=== PATIENT | female | born 1945 | race Caucasian/White ===

== ENCOUNTER 2019-05-21 16:13 | Inpatient (IN) | payer MEDICARE ==
--- NOTE | 2019-05-21 16:28 | ED ---
Abdominal Pain/Female - HPI Summary HPI Summary: This pt is a 74 y/o female presenting to [facility] via EMS from [facility] c/ o intermittent abd pain since yesterday. EMS reports pt presented to [facility] with LUQ abd pain. Her pain is aggravated with movement and alleviated with rest. Pt has vomited twice today. Her last bowel movement was yesterday. Pt had blood work and an abdominal/pelvis CT while at [facility] and found to have a large 8.1 x 5.5 cm fluid collection involving the pelvis. Patient received 15 mg Toradol, 1L fluids and antibiotics [employer]. Pt currently reports 4/10 abd pain. Denies fever, diarrhea, SOB, chest pain. PMHx: HTN, UTI, gastroenteritis, hypokalemia, hx of abscess in abdomen, C. diff but not active diarrhea. Pt denies tobacco use. NKDA. - History of Current Complaint Stated Complaint: ABD ABCESS PER EMS Time Seen by Provider: 05/21/19 16:16 Hx Obtained From: Patient Onset/Duration: Lasting Days - 1, Still Present Timing: Days - 1 Severity Currently: Moderate Pain Intensity: 4 Pain Scale Used: 0-10 Numeric Location: Discrete At: LUQ Radiates: No Aggravating Factor(s): Nothing Alleviating Factor(s): Nothing Associated Signs and Symptoms: Positive: Vomiting. Negative: Fever, Chest Pain , Diarrhea, Other: - NEGATIVE: SOB Allergies/Adverse Reactions: Allergies Allergy/AdvReac Type Severity Reaction Status Date / Time No Known Allergies Allergy Verified 05/21/19 16:21 Home Medications: Home Medications Donepezil TAB* [Aricept 5 MG TAB*] 5 mg PO BEDTIME 05/21/19 [History Confirmed 05/21/19] Fenofibrate [Tricor 160 MG] 160 mg PO DAILY WITH MEAL 05/21/19 [History Confirmed 05/21/19] Metoprolol Succinate XL TAB* [Toprol XL TAB*] 25 mg PO BID 05/21/19 [History Confirmed 05/21/19] Montelukast Sodium TAB* [Singulair TAB*] 10 mg PO DAILY 05/21/19 [History Confirmed 05/21/19] Spironolactone TAB* [Aldactone TAB*] 25 mg PO DAILY 05/21/19 [History Confirmed 05/21/19] PMH/Surg Hx/FS Hx/Imm Hx Cardiovascular History: Reports: Hx Hypertension GI History: Reports: Other GI Disorders - Gastroenteritis History: Reports: Other Problems/Disorders - UTI Infectious Disease History: No Infectious Disease History: Denies: Traveled Outside the [place] in Last 30 Days - Family History Known Family History: Positive: Non-Contributory - Social History Alcohol Use: Rare Substance Use Type: Reports: None Smoking Status (MU): Never Smoked Tobacco Review of Systems Negative: Fever Negative: Chest Pain Negative: Shortness Of Breath Positive: Abdominal Pain, Vomiting. Negative: Diarrhea All Other Systems Reviewed And Are Negative: Yes Physical Exam - Summary Physical Exam Summary: VITAL SIGNS: Reviewed. GENERAL: Patient is a well-developed and nourished female who is lying comfortable in the stretcher. Patient is not in any acute respiratory distress. HEAD AND FACE: No signs of trauma. No ecchymosis, hematomas or skull depressions. No sinus tenderness. EYES: PERRLA, EOMI x 2, No injected conjunctiva, no nystagmus. EARS: Hearing grossly intact. Ear canals and tympanic membranes are within normal limits. MOUTH: Oropharynx within normal limits. NECK: Supple, trachea is midline, no adenopathy, no JVD, no carotid bruit, no c- spine tenderness, neck with full ROM. CHEST: Symmetric, no tenderness at palpation. LUNGS: Clear to auscultation bilaterally. No wheezing or crackles. CVS: Regular rate and rhythm, S1 and S2 present, no murmurs or gallops appreciated. ABDOMEN: Soft, tenderness around the periumbilical area. No signs of distention. No rebound, no guarding, and no masses palpated. Bowel sounds are normal. EXTREMITIES: FROM in all major joints, no edema, no cyanosis or clubbing. NEURO: Alert and oriented x 3. No acute neurological deficits. Speech is normal and follows commands. SKIN: Dry and warm. Triage Information Reviewed: Yes Vital Signs On Initial Exam: Initial Vitals Temp Pulse Resp BP Pulse Ox 97.9 F 77 16 139/72 100 05/21/19 16:18 05/21/19 16:18 05/21/19 16:18 05/21/19 16:18 05/21/19 16:18 Vital Signs Reviewed: Yes Procedures - Sedation Patient Received Moderate/Deep Sedation with Procedure: No Diagnostics - Vital Signs Vital Signs Temp Pulse Resp BP Pulse Ox 05/21/19 16:18 97.9 F 77 16 139/72 100 - Laboratory Result Diagrams: 05/21/19 17:54 05/21/19 17:54 Lab Statement: Any lab studies that have been ordered have been reviewed, and results considered in the medical decision making process. - CT Abdomen/pelvis CT (from [place]) CT Interpretation Completed By: Radiologist Summary of CT Findings: IMPRESSION: Diffuse inflammatory changes in the lower abdomen and pelvis with aassociated multiple air-fluid levels. Findings may be on the basis of a late appendicitis, or perforated diverticulitis. There is a coarse calcification measuring approximately 1 cm involving the pelvis which may represent date displaced appendicolith or small degnerating uterine leiomyoma. Dr. Soto has reviewed this report. Re-Evaluation - Re-Evaluation First Eval Re-Evaluation Time: 18:28 Comment: Balwinder Long, surgical PA, reports patient will be admitted under Dr. Kebede' services. Abdominal Pain Fem Course/Dx - Course Course Of Treatment: This pt is a 74 y/o female presenting to [facility] via EMS from [facility] c/o intermittent abd pain since yesterday. EMS reports pt presented to [facility] with LUQ abd pain. Her pain is aggravated with movement and alleviated with rest. Pt has vomited twice today. Her last bowel movement was yesterday. Pt had blood work and an abdominal/pelvis CT while at [facility] and found to have a large 8.1 x 5.5 cm fluid collection involving the pelvis. Patient received 15 mg Toradol, 1L fluids and antibiotics [employer]. Pt currently reports 4/10 abd pain. Denies fever, diarrhea, SOB, chest pain. PMHx: HTN, UTI, gastroenteritis, hypokalemia, hx of abscess in abdomen, C. diff but not active diarrhea. Pt denies tobacco use. NKDA. Blood work shows white blood cell count of 13.4, platelets of 501, potassium 2.9 , anion gap is 13, CRP is 49.6. Abdominopelvic CT done in [facility] was reviewed by Dr. Kebede. Obed Long Physician Roof Bolting Coal Miner from Dr. Kebede is at bedside and he recommends for the patient to be admitted under Dr. Kebede services. Patient is hemodynamically stable. - Diagnoses Differential Diagnosis: Positive: Appendicitis, Constipation, Diverticulitis, Urinary Tract Infection Provider Diagnoses: Abdominal pain - Provider Notifications Discussed Care Of Patient With: Nirmal Kebede Time Discussed With Above Provider: 17:04 Instructed by Provider To: Other - Discussed with Dr. Kebede, surgeon, who will look at the CT. [1732] Dr. Kebede recommends repeat blood work and patient will be seen by surgery. Discharge ED - Sign-Out/Discharge Documenting (check all that apply): Patient Departure - Admit to [facility] - Discharge Plan Condition: Stable Disposition: ADMITTED TO [facility] Referrals: No Primary Care Phys,NOPCP [Medical Doctor] - - Billing Disposition and Condition Condition: STABLE Disposition: Admitted to [facility] - Attestation Statements Document Initiated by Edita: Yes Documenting Scribe: Shannon Boo Provider For Whom Edita is Documenting (Include Credential): Jared Soto MD Scribe Attestation: Shannon Sams, scribed for Jared Soto MD on 05/21/19 at 1841. Scribe Documentation Reviewed: Yes Provider Attestation: The documentation as recorded by the Shannon ayon accurately reflects the service I personally performed and the decisions made by me, Jared Soto MD Status of Scribe Document: Viewed
[2019-05-21 18:08] LABS: Hematocrit 38 % (35-47); Hemoglobin 12.5 g/dL (12.0-16.0); Mean Corpuscular HGB Conc 33 g/dL (31-36); Mean Corpuscular Hemoglobin 29 pg (27-31); Mean Corpuscular Volume 86 fL (80-97); Platelet Count 501 10^3/uL (150-450); Red Blood Count 4.38 10^6 /uL (3.70-4.87); Red Cell Distribution Width 15 % (10-15); White Blood Count 13.4 10^3/uL (3.5-10.8)
[2019-05-21] MEDS ORDERED: Ondansetron INJ* 2 MG/ML VIAL IV PRN (18:13)
[2019-05-21] MEDS ORDERED: HYDROmorphone INJ* 0.5 MG/0.5 ML SYRINGE IV SLOW PU PRN (18:13)
[2019-05-21] MEDS ORDERED: NS 0.9% 1000 ML** 1,000 ML IV SCH (18:15)
[2019-05-21 18:17] LABS: Activated Partial Thrombo Time 37.2 seconds (26.0-38.0); INR 1.86 (0.82-1.09)
[2019-05-21 18:26] LABS: Albumin 3.6 g/dL (3.2-5.2); Albumin/Globulin Ratio 1.1 (1-3); BUN/Creatinine Ratio 32.4 (8-20); C Reactive Protein 49.62 mg/L (<8.01); Calcium 8.9 mg/dL (8.6-10.3); EGFR African American 102.9 (>60); EGFR Non-African American 85.1 (>60); Globulin 3.3 g/dL (2-4); Potassium 2.9 mmol/L (3.5-5.0); Total Bilirubin 0.5 mg/dL (0.2-1.0); Total Protein 6.9 g/dL (6.4-8.9)
--- NOTE | 2019-05-21 19:02 | HP ---
H&P (Free Text) History and Physical: Subjective: CC: ABD pain x 1 week HPI: 74 yo F presents to ed with ABD pain that started 1 week ago, but increased in intensity this morning. She was treated for a possible urinary tract infection 1 week ago with cipro and recently finished that course. Increased pain today localized to umbilical/suprabubic area. She had some nausea and vomiting this morning. Denies diarrhea, constipation, blood in stool. Last BM yesterday. Has had some anorexia for 1 week. Transferred from [facility] ED, who gave ertapenem, did CT, and lab work. Has a history of C. Diff infection 1 year ago. PMH: HTN, HLD, dementia Family history: Negative for clotting or bleeding disorders Social hx: Lives with family, normally ambulates on own. Denies smoking, alcohol , and drug use or history. Surgical history: Tooth extractions, no complications Allergies: NKDA Current Medications Acetaminophen (Tylenol Tab*) 650 mg PO Q4H PRN PRN Reason: Moderate pain Hydromorphone HCl (Dilaudid Inj1s*) 0.5 mg IV SLOW PU Q1H PRN PRN Reason: PAIN - SEVERE Potassium Chloride (Potassium Chloride 10 Meq/50 Ml Ivpremix*) 10 meq in 50 mls @ 50 mls/hr IV Q2H JEVON Stop: 05/21/19 21:59 Sodium Chloride (Ns 0.9% 1000 Ml) 1,000 mls @ 125 mls/hr IV PER RATE [facility] Piperacillin Sod/Tazobactam (Sod 3.375 gm/ Sodium Chloride) 100 mls @ 25 mls/ hr IVPB Q8H [facility] Ondansetron HCl (Zofran Inj*) 4 mg IV Q4H PRN PRN Reason: NAUSEA/VOMITING Vital Signs - 8 hr 05/21/19 05/21/19 05/21/19 16:18 16:23 16:49 Temperature 97.9 F Pulse Rate 83 85 79 Respiratory 16 Rate Blood Pressure 139/72 78/59 (mmHg) O2 Sat by Pulse 100 100 100 Oximetry 05/21/19 05/21/19 05/21/19 17:00 17:18 18:07 Temperature Pulse Rate 85 84 Respiratory Rate Blood Pressure 138/73 136/71 (mmHg) O2 Sat by Pulse 99 100 Oximetry 05/21/19 18:08 Temperature Pulse Rate 84 Respiratory Rate Blood Pressure (mmHg) O2 Sat by Pulse [address] ABD Pelvis: intra abdominal abscess PEX: General: Alert and in no acute distress or discomfort Integumentary: No rashes, lesions, or jaundice Heart: RRR, no MRG Lungs: CTA, no WRR ABD: Bowel sounds present. Soft, nondistended. Tender in suprapubic/umbilical region. Negative fluid shift or copeland's sign. Extremities: No edema, pulses intact bilaterally. Assessment and plan: 74 yo woman with abdominal pain and CT scan showing intra abdominal abscess. Will admit to surgical and follow. Order for IR drainage tomorrow, NPO starting midnight, clear liquids for now, IV zosyn. KCl has been started to correct hypokalemia. Repeat labs ordered.
[2019-05-21] MEDS: KCL 10 MEQ/50 ML IVPREMIX* 10 MEQ/50 ML BAG IV SCH ×2 (19:19→21:52)
[2019-05-21 19:49] LABS: ABS Basophils 0.1 10^3/ul (0-0.2); ABS Eosinophils 0.2 10^3/ul (0-0.6); ABS Lymphocytes 2.2 10^3/ul (1.0-4.8); ABS Monocytes 0.8 10^3/ul (0-0.8); ABS Neutrophils 10.2 10^3/ul (1.5-7.7); Eosinophil % 1.2 %; Lymphocyte % 16.6 %
[2019-05-21] MEDS ORDERED: Phytonadione Oral Solution* 5 MG/25 ML UDC PO ONE (20:01)
[2019-05-21] MEDS ORDERED: Zosyn 3.375 gm X 1 dose, then dose per Pharmacy IVPB ONE ×2 (21:00)
[2019-05-22] MEDS: Piperacillin/Tazobactam VIAL*) 3.375 GM in NS 0.9% 100 ML* 100 ML IVPB SCH ×3 (01:08→16:46)
[2019-05-22 05:24] LABS: Hematocrit 32 % (35-47); Hemoglobin 10.5 g/dL (12.0-16.0); Mean Corpuscular HGB Conc 33 g/dL (31-36); Mean Corpuscular Hemoglobin 28 pg (27-31); Mean Corpuscular Volume 86 fL (80-97); Mean Platelet Volume 6.7 fL (7.4-10.4); Platelet Count 450 10^3/uL (150-450); Red Blood Count 3.69 10^6 /uL (3.70-4.87); Red Cell Distribution Width 15 % (10-15); White Blood Count 11.3 10^3/uL (3.5-10.8)
[2019-05-22 05:42] LABS: BUN/Creatinine Ratio 31.7 (8-20); Calcium 7.9 mg/dL (8.6-10.3); EGFR African American 112.4 (>60); EGFR Non-African American 92.9 (>60); Potassium 3.2 mmol/L (3.5-5.0)
[2019-05-22 05:57] LABS: ABS Basophils 0.1 10^3/ul (0-0.2); ABS Eosinophils 0.2 10^3/ul (0-0.6); ABS Lymphocytes 1.8 10^3/ul (1.0-4.8); ABS Monocytes 0.7 10^3/ul (0-0.8); ABS Neutrophils 8.5 10^3/ul (1.5-7.7); Eosinophil % 2.1 %; Lymphocyte % 15.7 %
[2019-05-22] MEDS: Acetaminophen TAB* 325 MG PO PRN (08:10)
[2019-05-22 09:01] LABS: INR 1.61 (0.82-1.09)
[2019-05-22] MEDS: KCL 10 MEQ/50 ML IVPREMIX* 10 MEQ/50 ML BAG IV SCH ×2 (10:37→12:43)
--- NOTE | 2019-05-22 10:52 | PN ---
Progress Note - Progress Note Date of Service: 05/22/19 Note: Subjective: Reporting moderate abdominal pain, similar to yesterday. No nausea/vomiting, fever, chills. Objective: Vital Signs - 8 hr 05/22/19 05/22/19 05/22/19 03:43 07:58 08:00 Temperature 99.1 F 98.1 F Pulse Rate 76 72 Respiratory 17 16 18 Rate Blood Pressure 108/47 101/54 (mmHg) O2 Sat by Pulse 97 100 Oximetry Intake and Output Last 24 Hours 05/20/19 05/21/19 05/22/19 05/23/19 06:59 06:59 06:59 06:59 Intake Total 1443 Output Total 150 100 Balance 1293 -100 Weight 168 lb 9.6 oz Intake: IV Fluids 1153 ABX - PIPERACILLIN 105 NS (0.9%) 990 potassium 58 Oral 290 Output: Urine 150 100 Other: Estimated Void Medium # Bowel Movements 0 1 Estimated Stool Amount Small # Voids 1 Laboratory Results - last 24 hr 05/21/19 05/21/19 05/21/19 17:54 17:54 17:54 WBC 13.4 H RBC 4.38 Hgb 12.5 Hct 38 MCV 86 MCH 29 MCHC 33 RDW 15 Plt Count 501 H MPV 7.0 L Neut % (Auto) 75.7 Lymph % (Auto) 16.6 Walsh % (Auto) 5.9 Eos % (Auto) 1.2 Baso % (Auto) 0.6 Absolute Neuts (auto) 10.2 H Absolute Lymphs (auto) 2.2 Absolute Monos (auto) 0.8 Absolute Eos (auto) 0.2 Absolute Basos (auto) 0.1 Absolute Nucleated RBC 0.0 Immature Gran % 3.0 Neutrophils % 65.0 Band Neutrophils % 1.0 Lymphocytes % 23.0 Monocytes % 4.0 Eosinophils % 4.0 Basophils % 1.0 Metamyelocytes % 2.0 Myelocytes % Nucleated RBC % 0.0 Normal RBC Morphology Normal INR (Anticoag Therapy) 1.86 H APTT 37.2 Sodium 141 Potassium 2.9 L Chloride 104 Carbon Dioxide 24 Anion Gap 13 H BUN 22 Creatinine 0.68 Est GFR ( Amer) 102.9 Est GFR (Non-Af Amer) 85.1 BUN/Creatinine Ratio 32.4 H Glucose 84 Calcium 8.9 Total Bilirubin 0.50 AST 14 ALT 10 Alkaline Phosphatase 53 C-Reactive Protein 49.62 H Total Protein 6.9 Albumin 3.6 Globulin 3.3 Albumin/Globulin Ratio 1.1 05/22/19 05/22/19 05/22/19 05:02 05:02 08:45 WBC 11.3 H RBC 3.69 L Hgb 10.5 L Hct 32 L MCV 86 MCH 28 MCHC 33 RDW 15 Plt Count 450 MPV 6.7 L Neut % (Auto) 75.4 Lymph % (Auto) 15.7 Walsh % (Auto) 6.4 Eos % (Auto) 2.1 Baso % (Auto) 0.4 Absolute Neuts (auto) 8.5 H Absolute Lymphs (auto) 1.8 Absolute Monos (auto) 0.7 Absolute Eos (auto) 0.2 Absolute Basos (auto) 0.1 Absolute Nucleated RBC 0.0 Immature Gran % 6.0 Neutrophils % 78.0 Band Neutrophils % 2.0 Lymphocytes % 9.0 Monocytes % 4.0 Eosinophils % 2.0 Basophils % 1.0 Metamyelocytes % 1.0 Myelocytes % 3.0 H Nucleated RBC % 0.0 Normal RBC Morphology Normal INR (Anticoag Therapy) 1.61 H APTT Sodium 143 Potassium 3.2 L Chloride 110 Carbon Dioxide 23 Anion Gap 10 BUN 20 Creatinine 0.63 Est GFR ( Amer) 112.4 Est GFR (Non-Af Amer) 92.9 BUN/Creatinine Ratio 31.7 H Glucose 94 Calcium 7.9 L Total Bilirubin AST ALT Alkaline Phosphatase C-Reactive Protein Total Protein Albumin Globulin Albumin/Globulin Ratio PEX: General: Alert and in no acute distress or discomfort Integumentary: No rashes, lesions, or jaundice Heart: RRR, no MRG Lungs: CTA, no WRR ABD: Soft, nondistended. Bowel sounds present. Tender in hypogastrium and umbilical region. Extremities: Distal pulses intact bilaterally. Calves nontender. Assessment/plan: 74 year old with ABD pain and intra abdominal abscess. Plan is IR drainage scheduled for today. I signed consent, as no family members were able to be reached. Later on, her son did sign consent after I informed him of the indications, risks, benefits, and alternatives of the procedure, as well as answered any questions. Ordered 2 runs of KCl for hypokalemia. Continue zosyn.
[2019-05-22] MEDS: D5W NS 0.9% 20Meq KCL 1000 ML* 1,000 ML IV SCH ×2 (12:10→22:19)
[2019-05-22] MEDS ORDERED: Iohexol 300* (CONTRAST) 10 ML SDV IV SCH (12:38)
[2019-05-22] MEDS ORDERED: fentaNYL* 50 MCG/ML 2 ML VIAL (100 MCG VIAL) ONE ×2 (17:23→18:30)
[2019-05-22] MEDS ORDERED: Naloxone* 0.4 MG/ML 1 ML VIAL ONE (17:23)
--- NOTE | 2019-05-22 19:25 | BRIEFOPN ---
Brief Operative/Procedure Note - Operation Details Pre-Op Diagnosis: Pelvic Abscess Post-Op Diagnosis: Pelvic Abscess / Phlegmon Procedures: CT guided right transgluteal pelvic abscess drain. Surgeon(s)/Proceduralists: Farzad Flores MD Anesthesia: IV Fentanyl and local 1% lidocaine Estimated Blood Loss: Minimal Findings: Abscess with more solid component mixed with fluid Specimen(s)/Culture(s) Description: 10 mL of purulent drainage sent to laboratory Complications: None
[2019-05-23] MEDS: Piperacillin/Tazobactam VIAL*) 3.375 GM in NS 0.9% 100 ML* 100 ML IVPB SCH ×3 (01:15→17:20)
[2019-05-23 06:41] LABS: Hematocrit 30 % (35-47); Hemoglobin 10.6 g/dL (12.0-16.0); Mean Corpuscular HGB Conc 35 g/dL (31-36); Mean Corpuscular Hemoglobin 30 pg (27-31); Mean Corpuscular Volume 85 fL (80-97); Mean Platelet Volume 6.7 fL (7.4-10.4); Platelet Count 453 10^3/uL (150-450); Red Blood Count 3.56 10^6 /uL (3.70-4.87); Red Cell Distribution Width 15 % (10-15); White Blood Count 10.8 10^3/uL (3.5-10.8)
[2019-05-23 07:01] LABS: BUN/Creatinine Ratio 18.9 (8-20); EGFR African American 137.2 (>60); EGFR Non-African American 113.4 (>60); Potassium 3.3 mmol/L (3.5-5.0)
[2019-05-23 07:48] LABS: ABS Eosinophils 0.1 10^3/ul (0-0.6); ABS Lymphocytes 1.2 10^3/ul (1.0-4.8); ABS Monocytes 0.5 10^3/ul (0-0.8); Eosinophil % 1.2 %; Lymphocyte % 10.6 %
[2019-05-23] MEDS: Acetaminophen TAB* 325 MG PO PRN ×2 (08:06→19:18)
[2019-05-23] MEDS: D5W NS 0.9% 20Meq KCL 1000 ML* 1,000 ML IV SCH ×2 (08:52→17:19)
--- NOTE | 2019-05-23 13:26 | PN ---
Progress Note - Progress Note Date of Service: 05/23/19 SOAP: Subjective: NAD, Comfortable in chair. reports + BM this AM [] Objective: Vital Signs Temp 98.2 F 05/23/19 11:34 Pulse 79 05/23/19 11:34 Resp 16 05/23/19 11:34 BP 123/54 05/23/19 11:34 Pulse Ox 99 05/23/19 11:34 Intake & Output 05/22/19 05/23/19 05/23/19 18:59 06:59 18:59 Intake Total 6281 562 7005 Output Total 400 695 400 Balance 868 467 1566 Weight 169 lb 11.2 oz Intake: IV Fluids 0556 340 0378 ABX - PIPERACILLIN 174 105 D5W 20 meq KCL 987 970 NS (0.9%) 906 potassium 100 Oral 0 0 570 Pigtail Drain 20 Output: Pigtail Drain 45 Urine 400 650 400 Other: Estimated Void Small Small # Bowel Movements 1 Estimated Stool Amount Small # Voids 1 Laboratory Tests 05/23/19 06:15 Potassium 3.3 L PEX Gen: NAD Chest: CTA CVS: RRR ABD: soft, ND/NT R buttock drain dressing C/D/I drain with minimal output [] Assessment: 74 yo female Post Procedure day 1 s/p placement of drain by IR of a pelvic abscess. Low K+ [] Plan: Continue current management. Replace K+. AM Labs. Follow cx's, continue IV ABX []
[2019-05-23] MEDS: KCL 20 MEQ/100 ML IVPREMIX* 20 MEQ/100 ML BAG IV SCH ×2 (19:46→22:09)
[2019-05-24] MEDS: KCL 20 MEQ/100 ML IVPREMIX* 20 MEQ/100 ML BAG IV SCH (01:12)
[2019-05-24] MEDS: Piperacillin/Tazobactam VIAL*) 3.375 GM in NS 0.9% 100 ML* 100 ML IVPB SCH ×3 (01:15→16:59)
[2019-05-24] MEDS: D5W NS 0.9% 20Meq KCL 1000 ML* 1,000 ML IV SCH ×3 (01:18→21:10)
[2019-05-24 07:02] LABS: Hematocrit 28 % (35-47); Hemoglobin 9.3 g/dL (12.0-16.0); Mean Corpuscular HGB Conc 34 g/dL (31-36); Mean Corpuscular Hemoglobin 29 pg (27-31); Mean Corpuscular Volume 86 fL (80-97); Mean Platelet Volume 6.8 fL (7.4-10.4); Platelet Count 415 10^3/uL (150-450); Red Blood Count 3.22 10^6 /uL (3.70-4.87); Red Cell Distribution Width 15 % (10-15); White Blood Count 7.4 10^3/uL (3.5-10.8)
[2019-05-24 07:16] LABS: BUN/Creatinine Ratio 9.4 (8-20); Calcium 7.7 mg/dL (8.6-10.3); EGFR African American 137.2 (>60); EGFR Non-African American 113.4 (>60); Potassium 4.2 mmol/L (3.5-5.0)
[2019-05-24 08:20] LABS: ABS Eosinophils 0.1 10^3/ul (0-0.6); ABS Lymphocytes 1.4 10^3/ul (1.0-4.8); ABS Monocytes 0.6 10^3/ul (0-0.8); ABS Neutrophils 5.3 10^3/ul (1.5-7.7); Eosinophil % 1.7 %; Lymphocyte % 18.5 %; Nucleated Red Blood Cells % 0.1
--- NOTE | 2019-05-24 12:41 | PN ---
Progress Note - Progress Note Date of Service: 05/24/19 SOAP: Subjective: NAD Comfortable in bed tolerating diet [] Objective: Vital Signs Temp 98.9 F 05/24/19 12:01 Pulse 75 05/24/19 12:01 Resp 16 05/24/19 12:01 BP 129/52 05/24/19 12:01 Pulse Ox 100 05/24/19 12:01 Intake & Output 05/23/19 05/24/19 05/24/19 18:59 06:59 18:59 Intake Total 3705 1771 980 Output Total 810 1140 Balance 2895 631 980 Intake: IV Fluids 2185 1371 980 ABX - PIPERACILLIN 215 111 D5W 20 meq KCL 970 D5W NS 20 meq KCL 1000 900 980 NS (0.9%) 60 potassium 300 Oral 1500 400 Pigtail Drain 20 Output: Pigtail Drain 35 40 Urine 775 1100 Other: # Bowel Movements 1 Estimated Stool Amount Small PEX GEN NAD Chest: CTA CVS: RRR Abd: soft NT/ND R Glute: drain dressing C/D/I Ext: calves soft Non Tender [] Assessment:74 yo female POD 2 s/p Pelvic abscess drain placed by IR low K+ has been corrected [] Plan:Can be transitioned to PO Abx on D/C Augmentin 875 BID x 10 days. Rx sent to [facility] Ambreen Rios needs drain care as outpatient, CT as outpatient next Mon or can Follow up at [facility] after CT []
[2019-05-25] MEDS: Piperacillin/Tazobactam VIAL*) 3.375 GM in NS 0.9% 100 ML* 100 ML IVPB SCH ×2 (00:35→09:18)
[2019-05-25] MEDS: D5W NS 0.9% 20Meq KCL 1000 ML* 1,000 ML IV SCH (05:32)
[2019-05-25 11:10] VITALS: BP 123/58
--- NOTE | 2019-05-25 11:44 | PN ---
Progress Note - Progress Note Date of Service: 05/25/19 Note: No complaints. Patient has been eating. Denies chest pain, abdominal pain, or pain at drain site. Denies dyspnea. Bedside nurse has done drain teaching with the family. Vital Signs - 12 hr Temp Pulse Resp BP Pulse Ox 05/25/19 11:09 98.4 F 68 16 123/58 100 05/25/19 09:18 18 05/25/19 07:55 99.6 F 65 18 104/51 99 05/25/19 04:00 97.9 F 80 16 110/50 98 05/25/19 00:23 98.3 F 93 16 115/50 98 Intake & Output 05/24/19 05/25/19 05/25/19 22:59 06:59 14:59 Intake Total 2462 980 Output Total 1000 600 150 Balance 1462 380 -150 Intake: IV Fluids 1102 980 D5W NS 20 meq KCL 1102 980 IVPB 100 ABX - ZOSYN 100 Oral 1240 0 Pigtail Drain 20 Output: Pigtail Drain 50 Urine 950 600 150 Other: Estimated Void Medium Date of Last Bowel 05/24/19 Movement # Bowel Movements 1 Estimated Stool Amount Small # Voids 1 General: NAD CV: Regular rate and rhythm. Chest: Clear to auscultation Abdomen: Soft, nontender, nondistended. Drain with scant purulent fluid. Extremities: Warm. No pedal edema. Skin: Warm and dry. Neuro: Alert, answering questions appropriately. A&P 74F with pelvic abscess s/p IR drain. Doing well. -Regular diet as tolerated -Drain to gravity. Plan to flush daily at home. -D/c Zosyn. Augmentin sent to outpatient pharmacy. -Plan for d/c today. Home nursing to start Monday. Plan for repeat CT scan on prior to clinic visit with Dr Kebede.
== END 2019-05-25 12:30 | disposition home or self-care (01) | DRG 759 ==
LOC: ED 16:13 → SSU 18:13
PROVIDERS: ADMIT Internal Medicine; ATTEND Surgery Surgical Critical Care
PROC: 0J9C30Z Drainage of Pelvic Region Subcutaneous Tissue and Fascia with Drainage Device, Percutaneous Approach (ICD-10-PCS; principal; 2019-05-21)
DX: N73.9 Female pelvic inflammatory disease, unspecified (principal); F03.90 Unspecified dementia, unspecified severity, without behavioral disturbance, psychotic disturbance, mood disturbance, and anxiety; I10 Essential (primary) hypertension; E78.5 Hyperlipidemia, unspecified; E87.6 Hypokalemia
CPT/HCPCS: 36415; 49406; 80048; 80053; 85025; 85610; 85730; 86140; 87070; 87076; 87205; 87640; 87641; 96365; 99285; A9270-GY; C1769; J1170; J2310; J2543; J3010; J3480

== ENCOUNTER 2020-11-30 08:45 | Inpatient (IN) ==
[2020-11-30] MEDS ORDERED: NS 0.9% 1000 ml BAG 1,000 ML IV ONE ×2 (08:58→11:33)
[2020-11-30 10:20] LABS: Urine Appearance Turbid; Urine Bilirubin 2+ (Negative); Urine Blood 1+ (Negative); Urine Color Amber; Urine Glucose Negative (Negative); Urine Ketones Trace (Negative); Urine Nitrite Negative (Negative); Urine Protein 1+(30 mg/dL) (Negative); Urine Urobilinogen Positive (Negative)
[2020-11-30 10:25] LABS: Urine Bacteria 3+ (Absent); Urine Red Blood Cell 3+(>10/hpf) (Absent); Urine Squamous Epithelial Cell Present (Absent); Urine White Blood Cell 3+(>20/hpf) (Absent)
[2020-11-30 11:11] LABS: Hematocrit 38 % (35-47); Hemoglobin 11.5 g/dL (12.0-16.0); Mean Corpuscular HGB Conc 30 g/dL (31-36); Mean Corpuscular Hemoglobin 26 pg (27-31); Mean Corpuscular Volume 86 fL (80-97); Mean Platelet Volume 7.7 fL (7.4-10.4); Platelet Count 759 10^3/uL (150-450); Red Cell Distribution Width 17 % (10-15); White Blood Count 25.4 10^3/uL (3.5-10.8)
[2020-11-30 11:21] LABS: Activated Partial Thrombo Time 32.4 seconds (26.0-38.0); INR 2.91 (0.86-1.15)
[2020-11-30 11:28] LABS: BNP 231 pg/mL (<=100)
[2020-11-30 11:29] LABS: Ammonia 39 mcmol/L (16-53); Troponin I 0.03 ng/mL (<0.03)
[2020-11-30 11:40] LABS: ALT 14 U/L (7-52); AST 17 U/L (13-39); Albumin 3.2 g/dL (3.2-5.2); Albumin/Globulin Ratio 0.7 (1-3); Alkaline Phosphatase 142 U/L (35-149); CO2 Carbon Dioxide 18 mmol/L (22-32); EGFR African American 24.8 (>60); EGFR Non-African American 20.5 (>60); Globulin 4.9 g/dL (2-4); Glucose 143 mg/dL (70-100); Lipase 112 U/L (11.0-82.0); Magnesium 3.1 mg/dL (1.9-2.7); Potassium 3.8 mmol/L (3.5-5.0); Total Protein 8.1 g/dL (6.4-8.9)
[2020-11-30 11:44] LABS: Anion Gap 17 mmol/L (2-11); Chloride 123 mmol/L (101-111); Sodium 158 mmol/L (135-145)
[2020-11-30] MEDS ORDERED: cefTRIAXone 1 gm/50 mL NS BAG 1 GM/50 ML BAG IVPB ONE (11:49)
[2020-11-30 11:51] LABS: Venous Bicarbonate HCO3 17.4 mmol/L (24-28)
[2020-11-30] MEDS ORDERED: Piperacillin/Tazobac ADVAN 3.375 GM in NS 0.9% 100 ml BAG 100 ML IV ONE (11:53)
[2020-11-30 12:02] LABS: Blood Urea Nitrogen 156 mg/dL (6-24)
[2020-11-30 13:02] LABS: ABS Lymphocytes 2.1 10^3/ul (1.0-4.8); ABS Monocytes 0.9 10^3/ul (0-0.8); ABS Neutrophils 22.3 10^3/ul (1.5-7.7); Lymphocyte % 8.2 %; Nucleated Red Blood Cells % 0.2
[2020-11-30] MEDS ORDERED: NS 0.9% 1000 ml BAG 1,000 ML IV SCH ×2 (14:15→14:45)
[2020-11-30] MEDS ORDERED: Zosyn per Pharmacy NOTE FOLLOW UP SCH (15:00)
[2020-11-30] MEDS: Metoprolol Tartrate 5 mg VIAL 5 ml VIAL (1 mg/ml) IV SCH ×2 (15:32→22:59)
[2020-11-30] MEDS: Pantoprazole VIAL 40 MG VIAL IV SCH (15:32)
[2020-11-30] MEDS ORDERED: Piperacillin/Tazobac ADVAN 3.375 GM in NS 0.9% 100 ml BAG 100 ML IV SCH (16:00)
[2020-11-30 17:00] LABS: PCO2 Arterial 23 mmHg (35-45); PO2 Arterial 69 mmHg (80-100)
[2020-11-30] MEDS ORDERED: NS 0.9% 500 ml BAG 500 ML IV ONE (17:44)
[2020-11-30 18:15] LABS: Hematocrit 32 % (35-47); Mean Corpuscular HGB Conc 31 g/dL (31-36); Mean Corpuscular Hemoglobin 27 pg (27-31); Mean Corpuscular Volume 87 fL (80-97); Mean Platelet Volume 7.7 fL (7.4-10.4); Platelet Count 572 10^3/uL (150-450); Red Blood Count 3.69 10^6 /uL (3.70-4.87); Red Cell Distribution Width 17 % (10-15); White Blood Count 23.6 10^3/uL (3.5-10.8)
[2020-11-30 18:32] LABS: Calcium 8.3 mg/dL (8.6-10.3); EGFR Non-African American 25.6 (>60); Magnesium 2.8 mg/dL (1.9-2.7); Phosphorus 4.7 mg/dL (2.5-5.0); Potassium 3.1 mmol/L (3.5-5.0)
[2020-11-30] MEDS ORDERED: 1/2 NS IV SCH (19:00)
[2020-11-30] MEDS ORDERED: SODIUM BICARB IV SCH (19:00)
[2020-11-30] MEDS ORDERED: D5W IV SCH (19:00)
[2020-11-30 19:22] LABS: ABS Lymphocytes 2.3 10^3/ul (1.0-4.8); ABS Monocytes 0.9 10^3/ul (0-0.8); ABS Neutrophils 20.3 10^3/ul (1.5-7.7); Lymphocyte % 9.8 %; Nucleated Red Blood Cells % 0.1
[2020-11-30] MEDS ORDERED: Sodium Bicarbonate 8.4% IV 100 MEQ in D5W 1000 ML BAG IV SCH (19:30)
[2020-11-30] MEDS: KCL 10 MEQ/50 ML IVPREMIX 10 MEQ/50 ML BAG IV SCH ×2 (20:49→23:15)
[2020-11-30] MEDS ORDERED: D5W 1000 ml BAG 1,000 ML IV SCH (21:00)
[2020-11-30] MEDS: Lactated Ringers 1000 ml BAG 1,000 ML IV SCH (22:40)
[2020-11-30] MEDS: Heparin 5000 UNITS/ML 1 mL VIAL SUBCUT SCH (22:52)
[2020-12-01] LABS: CO2 Carbon Dioxide 16 mmol/L (22-32); Calcium 8.1 mg/dL (8.6-10.3); Magnesium 2.6 mg/dL (1.9-2.7)
[2020-12-01 00:06] LABS: Anion Gap 15 mmol/L (2-11); Blood Urea Nitrogen 115 mg/dL (6-24); Chloride 129 mmol/L (101-111); EGFR African American 39.1 (>60); EGFR Non-African American 32.3 (>60); Glucose 160 mg/dL (70-100); Phosphorus 3.3 mg/dL (2.5-5.0); Sodium 160 mmol/L (135-145)
[2020-12-01] MEDS ORDERED: Lactated Ringers 500 ml BAG 500 ML IV ONE (00:15)
[2020-12-01 00:34] LABS: Troponin I 0.03 ng/mL (<0.03)
[2020-12-01] MEDS: KCL 10 MEQ/50 ML IVPREMIX 10 MEQ/50 ML BAG IV SCH ×5 (01:41→08:57)
[2020-12-01] MEDS: Metoprolol Tartrate 5 mg VIAL 5 ml VIAL (1 mg/ml) IV SCH (02:15)
[2020-12-01] MEDS ORDERED: Potassium Chloride LIQUID 20 MEQ/15 ML LIQUID PO ONE (02:22)
[2020-12-01 04:11] LABS: Calcium 8.3 mg/dL (8.6-10.3); Magnesium 2.5 mg/dL (1.9-2.7); Potassium 3.4 mmol/L (3.5-5.0)
[2020-12-01 04:17] LABS: EGFR African American 43.2 (>60); EGFR Non-African American 35.7 (>60); Phosphorus 2.7 mg/dL (2.5-5.0)
[2020-12-01] MEDS: Lactated Ringers 1000 ml BAG 1,000 ML IV SCH (05:28)
[2020-12-01] MEDS ORDERED: fentaNYL 100 mcg/2 ml 50 MCG/ML VIAL IV SLOW PU PRN (07:58)
[2020-12-01] MEDS: Pantoprazole VIAL 40 MG VIAL IV SCH (08:55)
[2020-12-01] MEDS: Heparin 5000 UNITS/ML 1 mL VIAL SUBCUT SCH (08:55)
[2020-12-01] MEDS ORDERED: Anidulafungin 200 MG in NS 0.9% 250 ml 200 ML IVPB ONE (11:00)
[2020-12-01] MEDS: Piperacillin/Tazobac ADVAN 3.375 GM in NS 0.9% 100 ml BAG 100 ML IV SCH ×2 (11:22→20:39)
[2020-12-01 11:44] LABS: INR 3.39 (0.86-1.15)
[2020-12-01 12:15] LABS: Calcium 8.6 mg/dL (8.6-10.3); Potassium 4.8 mmol/L (3.5-5.0)
[2020-12-01 12:21] LABS: EGFR African American 48.2 (>60); EGFR Non-African American 39.8 (>60)
[2020-12-01 12:39] LABS: Fibrinogen 431.2 mg/dL (110.8-404.3)
[2020-12-01] MEDS: fentaNYL 100 mcg/2 ml 50 MCG/ML VIAL IV SLOW PU PRN ×4 (12:58→20:39)
[2020-12-01] MEDS: Norepinephrine 16MCG/ML IVPRE 4,000 MCG/250 ML BAG IV SCH ×3 (13:47→20:52)
[2020-12-01] MEDS ORDERED: Buffered Lidocaine 1% SYRIN 1 ml INTRADERM ONE (13:53)
[2020-12-01 14:15] LABS: Magnesium 2.5 mg/dL (1.9-2.7); Phosphorus 2.7 mg/dL (2.5-5.0)
[2020-12-01 15:36] LABS: Hematocrit 34 % (35-47); Hemoglobin 9.9 g/dL (12.0-16.0); Mean Corpuscular HGB Conc 29 g/dL (31-36); Mean Corpuscular Hemoglobin 25 pg (27-31); Mean Corpuscular Volume 86 fL (80-97); Mean Platelet Volume 7.8 fL (7.4-10.4); Platelet Count 680 10^3/uL (150-450); Red Blood Count 3.91 10^6 /uL (3.70-4.87); Red Cell Distribution Width 17 % (10-15)
[2020-12-01 15:39] LABS: INR 3.55 (0.86-1.15)
[2020-12-01 16:30] LABS: ABS Lymphocytes 0.9 10^3/ul (1.0-4.8); ABS Monocytes 0.9 10^3/ul (0-0.8); ABS Neutrophils 34.1 10^3/ul (1.5-7.7); ABS Nucleated RBC 0.1 10^3/ul; Lymphocyte % 2.6 %; Nucleated Red Blood Cells % 0.3
[2020-12-01] MEDS ORDERED: Lactated Ringers 1000 ml BAG 1,000 ML IV SCH (16:54)
[2020-12-01] MEDS ORDERED: D5W 1000 ml BAG 1,000 ML IV SCH (18:00)
[2020-12-01 21:12] LABS: Calcium 8.4 mg/dL (8.6-10.3); EGFR African American 52.8 (>60); EGFR Non-African American 43.6 (>60); Potassium 4.3 mmol/L (3.5-5.0)
[2020-12-01 21:21] LABS: Calcium 8.5 mg/dL (8.6-10.3); Magnesium 2.3 mg/dL (1.9-2.7); Potassium 4.6 mmol/L (3.5-5.0)
[2020-12-01 21:26] LABS: EGFR African American 48.2 (>60); EGFR Non-African American 39.8 (>60); Phosphorus 2.5 mg/dL (2.5-5.0)
[2020-12-01] MEDS: Hydrocortisone INJ 100 MG/2ML 2 ML VIAL IV SCH (21:56)
[2020-12-01] MEDS: Saline FLUSH-CENTRAL 10 ML SYRINGE CENT\\PICC SCH (21:56)
[2020-12-02] MEDS ORDERED: Norepinephrine *QUAD STRENGTH* 16 mg/250 mL NS per protocol IV SCH (00:01)
[2020-12-02] MEDS: fentaNYL 100 mcg/2 ml 50 MCG/ML VIAL IV SLOW PU PRN ×3 (00:45→09:08)
[2020-12-02 01:13] LABS: Calcium 8.2 mg/dL (8.6-10.3); EGFR African American 55.4 (>60); EGFR Non-African American 45.8 (>60); Potassium 4.2 mmol/L (3.5-5.0)
[2020-12-02 02:22] LABS: PO2 Arterial 65 mmHg (80-100)
[2020-12-02 02:25] LABS: PCO2 Arterial < 20 mmHg (35-45)
[2020-12-02] MEDS ORDERED: Potassium Chloride LIQUID 20 MEQ/15 ML LIQUID PO ONE (02:28)
[2020-12-02] MEDS ORDERED: Sodium Bicarb 8.4% Vial 50 ML 150 MEQ in D5W 1000 ml BAG 850 ML IV SCH (03:00)
[2020-12-02] MEDS ORDERED: Phenylephrine IV 50 MG in NS 0.9% 250 ml 245 ML IV ONE (03:57)
[2020-12-02 04:44] LABS: Hematocrit 32 % (35-47); Hemoglobin 9.8 g/dL (12.0-16.0); Mean Corpuscular HGB Conc 31 g/dL (31-36); Mean Corpuscular Hemoglobin 26 pg (27-31); Mean Corpuscular Volume 86 fL (80-97); Mean Platelet Volume 7.9 fL (7.4-10.4); Platelet Count 579 10^3/uL (150-450); Red Blood Count 3.72 10^6 /uL (3.70-4.87); Red Cell Distribution Width 17 % (10-15); White Blood Count 39.6 10^3/uL (3.5-10.8)
[2020-12-02 04:53] LABS: INR 3.37 (0.86-1.15)
[2020-12-02 05:03] LABS: Albumin 2.6 g/dL (3.2-5.2); Albumin/Globulin Ratio 0.8 (1-3); Calcium 8.3 mg/dL (8.6-10.3); EGFR African American 60.2 (>60); EGFR Non-African American 49.7 (>60); Globulin 3.3 g/dL (2-4); Phosphorus 2.1 mg/dL (2.5-5.0); Potassium 4.2 mmol/L (3.5-5.0); Total Bilirubin 0.8 mg/dL (0.2-1.0); Total Protein 5.9 g/dL (6.4-8.9)
[2020-12-02] MEDS: Phenylephrine IV 50 MG in NS 0.9% 250 ml 245 ML IV SCH ×2 (05:36→11:37)
[2020-12-02] MEDS: Hydrocortisone INJ 100 MG/2ML 2 ML VIAL IV SCH (05:42)
[2020-12-02] MEDS ORDERED: Potassium Phosphate IV 10 MMOLE in NS 0.9% 250 ml 250 ML IVPB ONE (05:58)
[2020-12-02 06:24] LABS: ABS Lymphocytes 1.2 10^3/ul (1.0-4.8); ABS Monocytes 0.7 10^3/ul (0-0.8); ABS Neutrophils 37.7 10^3/ul (1.5-7.7); ABS Nucleated RBC 0.3 10^3/ul; Lymphocyte % 2.9 %; Nucleated Red Blood Cells % 0.7
[2020-12-02 08:10] VITALS: BP 106/51
[2020-12-02 09:03] LABS: Calcium 8.2 mg/dL (8.6-10.3); EGFR African American 63.6 (>60); EGFR Non-African American 52.5 (>60); Potassium 4.3 mmol/L (3.5-5.0)
[2020-12-02] MEDS: Pantoprazole VIAL 40 MG VIAL IV SCH (09:41)
[2020-12-02] MEDS: Piperacillin/Tazobac ADVAN 3.375 GM in NS 0.9% 100 ml BAG 100 ML IV SCH (09:41)
[2020-12-02] MEDS: Saline FLUSH-CENTRAL 10 ML SYRINGE CENT\\PICC SCH (09:50)
[2020-12-02] MEDS ORDERED: Anidulafungin 100 MG in NS 0.9% 100 ml BAG 100 ML IVPB SCH (11:00)
[2020-12-02] MEDS ORDERED: Lorazepam PYXIS KEY PRN (11:43)
[2020-12-02] MEDS ORDERED: LORazepam 2 mg VIAL 1 ml IV PUSH ONE (11:45)
[2020-12-02] MEDS ORDERED: Morphine 10 MG/ML VIAL (1 ml) IV ONE (11:57)
[2020-12-02] MEDS ORDERED: Morphine 10 MG/ML VIAL (1 ml) ONE (12:00)
[2020-12-02] MEDS ORDERED: Morphine PCA 5 MG/ML Titrate per Protocol PCA SCH (12:00)
[2020-12-02] MEDS: LORazepam 2 mg VIAL 1 ml IV PUSH PRN ×2 (13:30→15:23)
== END 2020-12-02 18:50 | disposition expired | DRG 871 ==
LOC: ED 08:45 → MED 15:19 → ICU 22:30
PROVIDERS: ADMIT Internal Medicine; ATTEND Internal Medicine Critical Care Medicine